=== PATIENT | male | born 1945 | race Caucasian/White ===

== ENCOUNTER 2017-03-10 13:41 | Emergency (ER) | payer MEDICARE, BC ==
--- NOTE | 2017-03-10 14:04 | EDM.PDOC ---
ED HPI GENERAL MEDICAL PROBLEM - General Chief Complaint: Chest Pain Stated Complaint: SOB Time Seen by Provider: 03/10/17 14:01 Source of Information: Reports: Patient History Limitations: Reports: No Limitations - History of Present Illness INITIAL COMMENTS - FREE TEXT/NARRATIVE: 71-year-old male presents to the ED with sudden onset of shortness of breath and central chest pressure discomfort. Broke out in sweats and felt for a period of time that he might faint. By history is a history of atrial fib flutter and is on Coumadin for many years. He was not aware of his heart racing at the time he developed symptoms. He is feeling somewhat better now although he feels a little bit short of breath. Of note he is been combining for well over a month i.e. prolonged sitting. Last PT INR was done about a month ago. He has had no coronary artery disease or need for intervention. Denies cough or sputum production. No fever or chills. Onset: Today Onset Date: 03/10/17 Onset Time: 13:00 Duration: Minutes: Location: Reports: Chest (Sudden onset of chest pressure discomfort and difficulty breathing broke out in a sweat.) Quality: Reports: Pressure Severity: Moderate (Antral chest.) Improves with: Reports: Rest Worsens with: Reports: Movement Context: Reports: Other. Denies: Activity, Exercise, Lifting, Sick Contact, Trauma Associated Symptoms: Reports: Chest Pain, Diaphoresis, Malaise, Shortness of Breath, Weakness. 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 Is on Coumadin for many years because of this.). Denies: CAD, AR - Past Surgical History GI Surgical History: Reports: Hernia Repair/Other Social & Family History - Tobacco Use Smoking Status *Q: Never Smoker - Caffeine Use Caffeine Use: Reports: None - Recreational Drug Use Recreational Drug Use: No - Living Situation & Occupation Occupation: Employed ED ROS GENERAL - Review of Systems Review Of Systems: See Below Constitutional: Reports: Malaise, Weakness, Fatigue, Diaphoresis. Denies: Fever , Chills, Decreased Appetite, Weight Loss (Over the last hour.) HEENT: Reports: No Symptoms Respiratory: Reports: Shortness of Breath. Denies: Wheezing, Pleuritic Chest Pain (See history present illness), Cough, Sputum, Hemoptysis Cardiovascular: Reports: Chest Pain, Edema, Lightheadedness. Denies: Blood Pressure Problem, Claudication, Dyspnea on Exertion (Mild in his feet by the end of the day.), Orthopnea, Palpitations Endocrine: Reports: Fatigue GI/Abdominal: Reports: No Symptoms : Reports: Frequency, Other (Nocturia 3.) Musculoskeletal: Reports: Back Pain, Joint Pain (Occasional low back pain) Skin: Reports: No Symptoms ( knees and hips at times) Neurological: Reports: No Symptoms Psychiatric: Reports: No Symptoms Hematologic/Lymphatic: Reports: No Symptoms Immunologic: Reports: No Symptoms ED EXAM, GENERAL - Physical Exam Exam: See Below Exam Limited By: No Limitations General Appearance: Alert, WD/WN, No Apparent Distress, Other (O2 sats are 97- 100% on room air. Mildly tachycardic at rest. Blood pressure normal 17/96.) Eye Exam: Bilateral Eye: Normal Inspection Ears: Normal TMs Throat/Mouth: Normal Inspection, Normal Lips, Normal Teeth, Normal Oropharynx Head: Atraumatic, Normocephalic Neck: Normal Inspection, Supple, Non-Tender, Full Range of Motion. No: Lymphadenopathy (L), Lymphadenopathy (R) Respiratory/Chest: No Respiratory Distress, Lungs Clear, Normal Breath Sounds, No Accessory Muscle Use Cardiovascular: Normal Peripheral Pulses, Regular Rate, Rhythm, No Edema, No Gallop, No Murmur, No Rub Peripheral Pulses: 1+: Posterior Tibial (L), Posterior Tibial (R), Dorsalis Pedis (L), Dorsalis Pedis (R) GI/Abdominal: Normal Bowel Sounds, Soft, Non-Tender, No Organomegaly, No Abnormal Bruit Back Exam: Normal Inspection, Full Range of Motion. No: CVA Tenderness (L), CVA Tenderness (R) Extremities: Normal Inspection, Normal Range of Motion, Non-Tender, No Pedal Edema, Normal Capillary Refill Neurological: Alert, Oriented, CN II-XII Intact, Normal Cognition, Normal Gait Psychiatric: Normal Affect, Normal Mood EKG INTERPRETATION EKG Date: 03/10/17 Time: 13:50 Rhythm: Other (No P waves are discernible. Regular narrow complex rhythm. Suspect ectopic atrial rhythm.) Rate (Beats/Min): 108 [place]: RAD-Right [place] Deviation P-Wave: Absent QRS: Other (Q waves V1 to V3 consider old anteroseptal myocardial infarction possibly subacute with ST segment elevation in V2 and V3. Near Q waves also in lead 1 and aVL consider old bilateral wall myocardial infarction.) ST-T: Elevated (Possibly mildly elevated in V2 and V3. Cannot rule out acute ischemic event.) QT: Normal (QT interval is prolonged at 410.) Course - Vital Signs Last Recorded V/S: Last Vital Signs Temp 35.9 C 03/10/17 13:48 Pulse 109 H 03/10/17 16:47 Resp 13 03/10/17 16:47 BP 118/93 H 03/10/17 16:47 Pulse Ox 98 03/10/17 16:47 - Orders/Labs/Meds Labs: Laboratory Tests 03/10/17 03/10/17 03/10/17 Range/Units 14:00 14:00 14:00 WBC 6.89 (4.23-9.07) K/mm3 RBC 5.35 (4.63-6.08) M/mm3 Hgb 15.8 (13.7-17.5) gm/L Hct 45.9 (40.1-51.0) % MCV 85.8 (79.0-92.2) fl MCH 29.5 (25.7-32.2) pg MCHC 34.4 (32.2-35.5) g/dl RDW Std Deviation 42.6 (35.1-43.9) fL Plt Count 220 (163-337) K/mm3 MPV 9.5 (9.4-12.3) fl Neutrophils % (Manual) 64 H (40-60) % Band Neutrophils % 0 (0-10) % Lymphocytes % (Manual) 34 (20-40) % Atypical Lymphs % 0 % Monocytes % (Manual) 0 L (2-10) % Eosinophils % (Manual) 1 (0.8-7.0) % Basophils % (Manual) 1 (0.2-1.2) Platelet Estimate Adequate Plt Morphology Comment Normal RBC Morph Comment Normal PT 26.9 H (8.0-13.0) SECONDS INR 2.34 D-Dimer, Quantitative (0.19-0.59) mg/L Sodium 140 (136-145) mEq/L Potassium 4.3 (3.5-5.1) mEq/L Chloride 106 (98-107) mEq/L Carbon Dioxide 24 (21-32) mEq/L Anion Gap 14.3 (5-15) BUN 18 (7-18) mg/dL Creatinine 1.6 H (0.7-1.3) mg/dL Est Cr Clr Drug Dosing 38.21 mL/min Estimated GFR (MDRD) 43 (>60) mL/min BUN/Creatinine Ratio 11.3 L (14-18) Glucose 101 (83-115) mg/dL Calcium 8.9 (8.5-10.1) mg/dL Magnesium (1.8-2.4) mg/dl Total Bilirubin 0.5 (0.2-1.0) mg/dL AST 23 (15-37) U/L ALT 33 (16-63) U/L Alkaline Phosphatase 134 H (46-116) U/L CK-MB (CK-2) 1.2 (0-3.6) ng/ml Troponin I < 0.017 (0.00-0.056) ng/mL C-Reactive Protein < 0.2 (<1.0) mg/dL Aax-L-Jrjuzantrrd Pept 1841 H (0-125) pg/mL Total Protein 7.0 (6.4-8.2) g/dl Albumin 3.7 (3.4-5.0) g/dl Globulin 3.3 gm/dL Albumin/Globulin Ratio 1.1 (1-2) Urine Color (Yellow) Urine Appearance (Clear) Urine pH (5.0-8.0) Ur Specific [place] (1.005-1.030) Urine Protein (Negative) Urine Glucose (UA) (Negative) Urine Ketones (Negative) Urine Occult Blood (Negative) Urine Nitrite (Negative) Urine Bilirubin (Negative) Urine Urobilinogen (0.2-1.0) Ur Leukocyte Esterase (Negative) 03/10/17 03/10/17 03/10/17 Range/Units 14:00 14:00 16:10 WBC (4.23-9.07) K/mm3 RBC (4.63-6.08) M/mm3 Hgb (13.7-17.5) gm/L Hct (40.1-51.0) % MCV (79.0-92.2) fl MCH (25.7-32.2) pg MCHC (32.2-35.5) g/dl RDW Std Deviation (35.1-43.9) fL Plt Count (163-337) K/mm3 MPV (9.4-12.3) fl Neutrophils % (Manual) (40-60) % Band Neutrophils % (0-10) % Lymphocytes % (Manual) (20-40) % Atypical Lymphs % % Monocytes % (Manual) (2-10) % Eosinophils % (Manual) (0.8-7.0) % Basophils % (Manual) (0.2-1.2) Platelet Estimate Plt Morphology Comment RBC Morph Comment PT (8.0-13.0) SECONDS INR D-Dimer, Quantitative < 0.19 L (0.19-0.59) mg/L Sodium (136-145) mEq/L Potassium (3.5-5.1) mEq/L Chloride (98-107) mEq/L Carbon Dioxide (21-32) mEq/L Anion Gap (5-15) BUN (7-18) mg/dL Creatinine (0.7-1.3) mg/dL Est Cr Clr Drug Dosing mL/min Estimated GFR (MDRD) (>60) mL/min BUN/Creatinine Ratio (14-18) Glucose (83-115) mg/dL Calcium (8.5-10.1) mg/dL Magnesium 1.7 L (1.8-2.4) mg/dl Total Bilirubin (0.2-1.0) mg/dL AST (15-37) U/L ALT (16-63) U/L Alkaline Phosphatase (46-116) U/L CK-MB (CK-2) (0-3.6) ng/ml Troponin I (0.00-0.056) ng/mL C-Reactive Protein (<1.0) mg/dL Ewd-[id number]-Jqpisrjpxxb Pept (0-125) pg/mL Total Protein (6.4-8.2) g/dl Albumin (3.4-5.0) g/dl Globulin gm/dL Albumin/Globulin Ratio (1-2) Urine Color Light yellow (Yellow) Urine Appearance Clear (Clear) Urine pH 7.0 (5.0-8.0) Ur Specific [place] 1.015 (1.005-1.030) Urine Protein Negative (Negative) Urine Glucose (UA) Negative (Negative) Urine Ketones Negative (Negative) Urine Occult Blood Negative (Negative) Urine Nitrite Negative (Negative) Urine Bilirubin Negative (Negative) Urine Urobilinogen 0.2 (0.2-1.0) Ur Leukocyte Esterase Negative (Negative) Meds: Medications Discontinued Medications Generic Name Dose Route Start Last Admin Trade Name Freq PRN Reason Stop Dose Admin Furosemide 40 mg 03/10/17 16:25 03/10/17 16:42 Lasix PO 03/10/17 16:26 40 mg ONETIME ONE Administration Sodium Chloride 1,000 mls @ 100 mls/hr 03/10/17 14:30 03/10/17 14:31 Normal Saline IV 100 mls/hr ASDIRECTED ASHOK Administration - Radiology Interpretation Free Text/Narrative:: 71-year-old male presents the ED due to acute onset of shortness of breath with central pressure discomfort and no code and a severe sweat. [place] for a while that he was going to collapse. Of note the patient has a history of chronic atrial fib flutter which appears to be well controlled on ECG current rate is 108. He is on Coumadin for this for many years. Last PT/INR was greater than a month ago. Patient has been on no calm line for the last month i.e. prolonged sitting O2 sats are 97-1% on room air. ECG shows a ectopic regular narrow complex rhythm likely ectopic atrial rhythm. There is Q waves in V1 to V3 compatible with a old anteroseptal myocardial infarction. ST segments are slightly elevated in V2 and V3 and therefore cannot rule out subacute anteroseptal AR. There is also near Q-wave in 1 and a Q-wave in aVL suggestive of lateral wall involvement. He gives no history of known coronary disease. QT interval is mildly prolonged at 410. Plan routine labs to include PT/INR d- dimer. One view chest x-ray to be done. Cardiac markers as well. - Re-Assessments/Exams Free Text/Narrative Re-Assessment/Exam: 03/10/17 14:44 chest x-ray done portably reveals clear lung lord. Both pulmonary arteries appear to be quite prominent. BX silhouette is essentially normal. There is very mild diffuse vascular congestion pattern. 03/10/17 15:54 white count was 6.89 with 64% neutrophils no bands hemoglobin is 15.8 hematocrit of 45.9 platelets 220,000. Coags show a PT of 26.9 INR is 2.34 which is considered therapeutic. D-dimer is less than 0.19. BNP is elevated at 1841. Troponin is normal at less than 0.017 CK-MB fraction 1.2. CRP was less than 0.2. Suffered for some reason he has developed an accumulation of fluid a mild congestive heart failure symptoms his history suggests almost flash pulmonary edema but this is certainly not evident on x-ray. Patient is feeling improved with no further dyspnea. O2 sats remained around 94% on room air. 03/10/17 16:24 discussed the findings with the patient and he was advised that he needs to take Lasix 40 mg once daily until follow-up with cardiology. He will be to return to [facility]. He needs an echocardiogram to see if there is any structural abnormalities of his heart that would precipitate congestive failure. I will place him on Lasix 40 mg once daily with the first tablet provided in the ED now. I will give him 2 prescriptions one for 7 tablets until he can [facility] 30 more tablets. He will follow-up with his personal physian in 7 days time. Departure - Departure Time of Disposition: 16:26 Disposition: Home, Self-Care 01 Condition: Fair Clinical Impression: Acute pulmonary edema - Discharge Information Prescriptions: Furosemide [Lasix] 40 mg PO DAILY #30 tablet Instructions: Pulmonary Edema, [id number] Referrals: PCP,Not In Area [Primary Care Provider] - Forms: ED Department Discharge Additional Instructions: Evaluation in the emergency him today due to sudden onset of central chest pressure discomfort shortness of breath and major break out in a sweat. Workup included a heart workup and rule out of any blood clot in the lung. You are on Coumadin because of atrial fibrillation and her INR today is therapeutic at 2.34. Chest x-ray revealed mild fluid accumulation within the lungs. This correlated with an elevated BNP at 1841. This is a measuring stick for how well the left side of the heart is pumping. You therefore require further workup by cardiology. You need an echocardiogram and you may need an angiogram as well. In the meantime suggest Lasix 40 mg once daily in the morning to keep the fluid off of your heart and prevent further fluid retention and shortness of breath from developing. First tablet was provided in the ED today next tablet would be due tomorrow morning. I wrote a prescription for 7 tablets that you can purchase today from the pharmacy and then a prescription for 30 tablets that [facility] can [facility].
[2017-03-10] MEDS ORDERED: Sodium Chloride 0.9% 1,000 ML IV SCH (14:30)
[2017-03-10] MEDS ORDERED: Furosemide 40 MG Tab PO ONE (16:25)
[2017-03-10 17:04] VITALS: BP 118/93
--- NOTE | 2017-03-11 10:46 | CR ---
Chest: Frontal view of the chest was obtained. Comparison: No previous study. Old healed fracture deformity is noted within the mid left clavicle. Heart size is normal. Mild tortuosity of the thoracic aorta is seen. Lungs are clear. Impression: 1. Incidental finding. Nothing acute is appreciated on frontal chest x-ray. Diagnostic code #2
== END 2017-03-10 16:47 | disposition home or self-care (01) ==
LOC: JD.ED 13:41
DX: J81.0 Acute pulmonary edema (principal); I48.91 Unspecified atrial fibrillation; Z98.890 Other specified postprocedural states; Z79.899 Other long term (current) drug therapy; Z88.6 Allergy status to analgesic agent
CPT/HCPCS: 36415; 71010; 80053; 81003; 82553; 83735; 83880; 84484; 85025; 85379; 85610; 86140; 93005; 96360; 96361; 99285; A9270; J7040

== ENCOUNTER 2020-07-15 20:32 | Emergency (ER) | payer OTHER, MEDICARE, BC ==
[2020-07-15] MEDS ORDERED: Sodium Chloride 0.9% 10 ML Syringe FLUSH PRN (20:40)
[2020-07-15] MEDS ORDERED: methylPREDNISolone Sodium Succinate 125 MG/2 ML SDV IVPUSH PRN (20:51)
[2020-07-15] MEDS ORDERED: Famotidine 20 MG/2 ML SDV IVPUSH PRN (20:51)
[2020-07-15] MEDS ORDERED: diphenhydrAMINE 50 MG/ML SDV IVPUSH PRN (20:51)
[2020-07-15] MEDS ORDERED: EPINEPHrine 1:10,000 1 MG/10 ML Syringe IM PRN (20:51)
--- NOTE | 2020-07-15 20:56 | EDM.PDOC ---
ED HPI GENERAL MEDICAL PROBLEM - General Chief Complaint: Respiratory Problem Stated Complaint: COVID + Time Seen by Provider: 07/15/20 20:40 Source of Information: Reports: Patient, Provider (Oral report from provider at [facility]), RN Notes Reviewed History Limitations: Reports: No Limitations - History of Present Illness INITIAL COMMENTS - FREE TEXT/NARRATIVE: Patient is a 74-year-old male who presents to the ED for the evaluation of his ongoing COVID-19. Patient notes that he developed a fever today, and started feeling somewhat ill with fatigue, and headache. He went to the walk-in clinic today, was tested for Covid and was positive. He does note that his son was positive for Covid over the weekend. The patient has underlying heart issues and takes metoprolol, flecainide, and losartan. His O2 sats are 99% on room air, pulse is 54 bpm, temperature is 98.1 F, respiratory rate of 13 and blood pressure is 164/78. Patient does meet inclusion criteria for outpatient monoclonal antibody therapy. He did have a chest x-ray done at the walk-in clinic but we do not have a verbal read of the report. Patient does do most of his health care through the [place] system. - Related Data Allergies Allergy/AdvReac Type Severity Reaction Status Date / Time ketorolac [From Toradol] Allergy Nausea Verified 07/15/20 20:41 meperidine [From Demerol] Allergy Nausea Verified 07/15/20 20:41 Home Meds: Home Meds Flecainide [Tambocor] 100 mg PO BID 07/15/20 [History] Losartan [Cozaar] 50 mg PO DAILY 07/15/20 [History] Metoprolol Succinate 12.5 mg PO BID 07/15/20 [History] Warfarin [Coumadin] 5 mg PO DAILY 07/15/20 [History] Past Medical History Cardiovascular History: Reports: Afib (History of chronic atrial fib/flutter. Is on Coumadin for many years because of this.). Denies: CAD, [place] - Past Surgical History GI Surgical History: Reports: Hernia Repair/Other Social & Family History - Caffeine Use Caffeine Use: Reports: None - Living Situation & Occupation Occupation: Employed ED ROS GENERAL - Review of Systems Review Of Systems: Comprehensive ROS is negative, except as noted in HPI. ED EXAM, GENERAL - Physical Exam Exam: See Below Exam Limited By: No Limitations General Appearance: Alert, WD/WN, No Apparent Distress Respiratory/Chest: No Respiratory Distress, Lungs Clear, Normal Breath Sounds, No Accessory Muscle Use, Chest Non-Tender Cardiovascular: Normal Peripheral Pulses, Regular Rate, Rhythm, No Edema, No Murmur Peripheral Pulses: 2+: Radial (L), Radial (R) Extremities: Normal Inspection, Normal Capillary Refill Neurological: Alert, Oriented, Normal Cognition, No Motor/Sensory Deficits Psychiatric: Normal Affect, Normal Mood Skin Exam: Warm, Dry, Intact, Normal Color, No Rash #1 Interpretation EKG Date: 07/15/20 Time: 20:49 Rhythm: NSR Rate (Beats/Min): 43 [place]: LAD-Left [place] Deviation P-Wave: Present QRS: Normal ST-T: Normal QT: Normal AR/PQ Interval: First-degree AV block 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 Supraventricular bigeminy was noted. Reviewed with Dr. Yanez. Course - Vital Signs Last Recorded V/S: Last Vital Signs Temp 97.4 F 07/15/20 23:19 Pulse 60 07/15/20 23:19 Resp 16 07/15/20 23:19 BP 154/77 H 07/15/20 23:19 Pulse Ox 100 07/15/20 23:19 - Orders/Labs/Meds Labs: Laboratory Tests 07/15/20 07/15/20 07/15/20 Range/Units 20:30 20:30 20:30 WBC (4.23-9.07) K/mm3 RBC (4.63-6.08) M/mm3 Hgb (13.7-17.5) gm/dl Hct (40.1-51.0) % MCV (79.0-92.2) fl MCH (25.7-32.2) pg MCHC (32.2-35.5) g/dl RDW Std Deviation (35.1-43.9) fL Plt Count (163-337) K/mm3 MPV (9.4-12.3) fl Neutrophils % (Manual) (40-60) % Band Neutrophils % (0-10) % Lymphocytes % (Manual) (20-40) % Atypical Lymphs % % Monocytes % (Manual) (2-10) % Eosinophils % (Manual) (0.8-7.0) % Basophils % (Manual) (0.2-1.2) Platelet Estimate RBC Morph Comment PT (9.7-12.0) SECONDS INR APTT (21.7-31.4) SECONDS D-Dimer, Quantitative (0.19-0.50) mg/L Sodium 139 (136-145) mEq/L Potassium 4.2 (3.5-5.1) mEq/L Chloride 105 (98-107) mEq/L Carbon Dioxide 23 (21-32) mEq/L Anion Gap 15.2 H (5-15) BUN 30 H (7-18) mg/dL Creatinine 1.4 H (0.7-1.3) mg/dL Est Cr Clr Drug Dosing 41.77 mL/min Estimated GFR (MDRD) 50 (>60) mL/min BUN/Creatinine Ratio 21.4 H (14-18) Glucose 118 H (83-115) mg/dL Calcium 8.5 (8.5-10.1) mg/dL Magnesium 1.8 (1.8-2.4) mg/dl Ferritin (26-388) ng/ml Total Bilirubin 0.5 (0.2-1.0) mg/dL AST 26 (15-37) U/L ALT 29 (16-63) U/L Alkaline Phosphatase 119 H (46-116) U/L Lactate Dehydrogenase 211 (85-227) U/L Troponin I < 0.017 (0.00-0.056) ng/mL C-Reactive Protein 3.1 H* (<1.0) mg/dL NT-Pro-B Natriuret Pep 188 H (0-125) pg/mL Total Protein 7.5 (6.4-8.2) g/dl Albumin 3.4 (3.4-5.0) g/dl Globulin 4.1 gm/dL Albumin/Globulin Ratio 0.8 L (1-2) 07/15/20 07/15/20 07/15/20 Range/Units 20:30 20:50 20:50 WBC 5.80 (4.23-9.07) K/mm3 RBC 4.78 (4.63-6.08) M/mm3 Hgb 14.1 D (13.7-17.5) gm/dl Hct 42.6 (40.1-51.0) % MCV 89.1 D (79.0-92.2) fl MCH 29.5 (25.7-32.2) pg MCHC 33.1 (32.2-35.5) g/dl RDW Std Deviation 43.8 (35.1-43.9) fL Plt Count 154 L (163-337) K/mm3 MPV 9.6 (9.4-12.3) fl Neutrophils % (Manual) 65 H (40-60) % Band Neutrophils % 0 (0-10) % Lymphocytes % (Manual) 31 (20-40) % Atypical Lymphs % 0 % Monocytes % (Manual) 4 (2-10) % Eosinophils % (Manual) 0 L (0.8-7.0) % Basophils % (Manual) 0 L (0.2-1.2) Platelet Estimate Adequate RBC Morph Comment Normal PT 22.1 H (9.7-12.0) SECONDS INR 2.10 APTT 35.9 H (21.7-31.4) SECONDS D-Dimer, Quantitative < 0.19 L (0.19-0.50) mg/L Sodium (136-145) mEq/L Potassium (3.5-5.1) mEq/L Chloride (98-107) mEq/L Carbon Dioxide (21-32) mEq/L Anion Gap (5-15) BUN (7-18) mg/dL Creatinine (0.7-1.3) mg/dL Est Cr Clr Drug Dosing mL/min Estimated GFR (MDRD) (>60) mL/min BUN/Creatinine Ratio (14-18) Glucose (83-115) mg/dL Calcium (8.5-10.1) mg/dL Magnesium (1.8-2.4) mg/dl Ferritin 155 (26-388) ng/ml Total Bilirubin (0.2-1.0) mg/dL AST (15-37) U/L ALT (16-63) U/L Alkaline Phosphatase (46-116) U/L Lactate Dehydrogenase (85-227) U/L Troponin I (0.00-0.056) ng/mL C-Reactive Protein (<1.0) mg/dL NT-Pro-B Natriuret Pep (0-125) pg/mL Total Protein (6.4-8.2) g/dl Albumin (3.4-5.0) g/dl Globulin gm/dL Albumin/Globulin Ratio (1-2) Meds: Medications Discontinued Medications Generic Name Dose Route Start Last Admin Trade Name Freq PRN Reason Stop Dose Admin Diphenhydramine HCl 50 mg 07/15/20 20:51 Benadryl IVPUSH ONETIME PRN hypersensitivity reaction Epinephrine HCl 0.3 mg 07/15/20 20:51 Epinephrine 1:10,000 IM ONETIME PRN hypersensitivity reaction Famotidine 20 mg 07/15/20 20:51 Pepcid IVPUSH ONETIME PRN hypersensitivity reaction Bamlanivimab 700 mg/ Sodium 250 mls @ 250 mls/hr 07/15/20 20:51 07/15/20 21:23 Chloride IV 07/15/20 20:52 250 mls/hr ONETIME ONE Administration Protocol Methylprednisolone Sodium Succinate 125 mg 07/15/20 20:51 Solu-Medrol IVPUSH ONETIME PRN hypersensitivity reaction Sodium Chloride 10 ml 07/15/20 20:40 Saline Flush FLUSH ASDIRECTED PRN Keep Vein Open Sodium Chloride 30 ml 07/15/20 21:00 Saline Flush FLUSH ASDIRECTED ASHOK - Re-Assessments/Exams Free Text/Narrative Re-Assessment/Exam: 07/15/20 20:56 Patient presents to the ED for the evaluation of his ongoing COVID-19 symptoms. We will get baseline labs, patient did have a chest x-ray done at the walk-in clinic so I will not repeat one for today's purposes. His O2 sats are good on room air, with him testing positive today and starting symptomatic it is likely that he does not have major pneumonialike changes. Patient does meet inclusion criteria for bamlanivimab treatment. I spoke with the patient to provide information about bamlanivimab treatment. I offered them the "Patient and caregiver EUA bamlanivimab fact sheet" to read and review. I stated that the drug has been approved by an emergency use authorization (EUA) process and has not been fully FDA reviewed or approved. The patient meets the EUA req uirements. I discussed there are other potential treatment options that are currently not FDA approved to treat COVID-19. I did offer an opportunity to ask questions and all questions were answered. Patient voiced understanding and agreed to proceed with the treatment. 07/15/20 21:55 Labs have been drawn, and there are no major acute findings that need attention at today's visit. Patient is getting his bamlanivimab, he will be kept in the ER for 1 hour after infusion of this medication to be watched for side effects, and discharged home with general conservative recommendations. Departure - Departure Time of Disposition: 21:55 Disposition: Home, Self-Care 01 Condition: Good Clinical Impression: COVID-19 - Discharge Information *PRESCRIPTION DRUG MONITORING PROGRAM REVIEWED*: No *COPY OF PRESCRIPTION DRUG MONITORING REPORT IN PATIENT WILLEM: No Instructions: COVID-19 Frequently Asked Questions, Prevent the Spread of COVID- 19 if You Are Sick - [facility] [place] Referrals: Ludmila Faith MD [Primary Care Provider] - Forms: ED Department Discharge Additional Instructions: You were seen in the ER today for ongoing and/or worsening respiratory symptoms. Your chest x-ray showed no signs of pneumonia at this time. Your oxygen levels were great at 98% on room air. You were given an outpatient monoclonal antibody therapy for your ongoing COVID- 19 illness. This should help make you feel better sooner, and hopefully shorten the length of your symptoms. Please try to increase your oral fluid intake, and eat multiple small meals throughout the day, to keep yourself healthy. You need to keep yourself nourished in order to fight off this disease. You can try a liquid diet like gat orade/powerade as well to get your electrolytes. You may take 500 mg Tylenol every hours 6 hours for pain/fever relief. Do not exceed 4000 mg Tylenol in a 24-hour time span. However, running a fever is your body's natural response to illness, and it allows the body to develop antibodies to disease, we are recommending trying to limit the use of Tylenol as much as possible to allow your body's natural immune response. Recommend you obtain a pulse oximeter and monitor your oxygen levels at home, you should place the monitor on your finger, and sit in a calm, quiet position for a few minutes and then record the number that is on the screen. If this consistently below 90% on room air without movement, this would be cause for concern to come back to the hospital for further management of your COVID-19 disease. Sepsis Event Note (ED) - Evaluation Sepsis Screening Result: No Definite Risk
[2020-07-15] MEDS ORDERED: Sodium Chloride 0.9% 10 ML Syringe FLUSH SCH (21:00)
[2020-07-15 23:20] VITALS: BP 154/77; PULSE 60
== END 2020-07-15 23:18 | disposition home or self-care (01) ==
LOC: JD.ED 20:32
DX: U07.1 COVID-19 (principal); I48.91 Unspecified atrial fibrillation; Z88.6 Allergy status to analgesic agent; Z88.5 Allergy status to narcotic agent; Z79.01 Long term (current) use of anticoagulants; Z79.899 Other long term (current) drug therapy
CPT/HCPCS: 36415; 80053; 82728; 83615; 83735; 83880; 84484; 85007; 85027; 85379; 85610; 85730; 86140; 93005; 99284; J7050; M0239; 93010; 99283; Q0239

== ENCOUNTER → 2024-09-07 | Day surgery (SDC) | payer MEDICARE, BC ==
[2024-09-07] MEDS: Phenylephrine 2.5% Ophth Soln 2 ML Bot EYERT SCH (07:13)
[2024-09-07] MEDS: Lidocaine 1% PF 2 ML SDV INJECT SCH (07:14)
[2024-09-07] MEDS: Tetracaine HCl/PF 0.5% 4 ML Bottle EYEBOTH SCH (07:14)
[2024-09-07] MEDS: Pilocarpine 4% Ophth Soln 15 ML Bot EYERT SCH (07:14)
[2024-09-07] MEDS: Cefuroxime 10 MG/ML SYRINGE EYERT SCH (07:14)
[2024-09-07] MEDS: Polymyxin B/Trimethoprim 10 ML Bottle EYERT SCH (07:14)
[2024-09-07] MEDS: Brimonidine 0.2% Ophth Soln 5 ML Bottle EYERT SCH (07:14)
[2024-09-07 07:55] VITALS: BP 176/80; PULSE 68
[2024-09-07] MEDS: Tropicamide 1% Ophth Soln 3 ML Bottle EYERT SCH (08:55)
[2024-09-07] MEDS: LORazepam 1 MG Tab PO ONE (09:25)
== END ==
LOC: JD.SDS 07:39
PROVIDERS: ATTEND Ophthalmology
DX: H25.813 Combined forms of age-related cataract, bilateral (principal); I10 Essential (primary) hypertension; H18.413 Arcus senilis, bilateral; H43.813 Vitreous degeneration, bilateral; H35.3131 Nonexudative age-related macular degeneration, bilateral, early dry stage; H16.103 Unspecified superficial keratitis, bilateral; H16.223 Keratoconjunctivitis sicca, not specified as Sjogren's, bilateral; H02.831 Dermatochalasis of right upper eyelid; H02.834 Dermatochalasis of left upper eyelid; Z79.899 Other long term (current) drug therapy; I48.91 Unspecified atrial fibrillation; Z79.01 Long term (current) use of anticoagulants
CPT/HCPCS: A9270-GY; J0697; J3490

== ENCOUNTER 2024-10-05 07:24 | Day surgery (SDC) | payer MEDICARE, BC ==
[2024-10-05] MEDS: Polymyxin B/Trimethoprim 10 ML Bottle EYELF SCH (07:33)
[2024-10-05] MEDS: Brimonidine 0.2% Ophth Soln 5 ML Bottle EYELF SCH (07:35)
[2024-10-05] MEDS: Phenylephrine 2.5% Ophth Soln 2 ML Bot EYELF SCH (07:35)
[2024-10-05] MEDS: Lidocaine 1% PF 2 ML SDV INJECT SCH (07:35)
[2024-10-05] MEDS: Tetracaine HCl/PF 0.5% 4 ML Bottle EYEBOTH SCH (07:35)
[2024-10-05] MEDS: Cefuroxime 10 MG/ML SYRINGE EYELF SCH (07:36)
[2024-10-05] MEDS: Pilocarpine 4% Ophth Soln 15 ML Bot EYELF SCH (07:36)
[2024-10-05] MEDS: Tropicamide 1% Ophth Soln 3 ML Bottle EYELF SCH (07:47)
[2024-10-05] MEDS: LORazepam 1 MG Tab PO ONE (08:03)
[2024-10-05 09:37] VITALS: BP 157/82; PULSE 44
== END 2024-10-05 09:33 | disposition home or self-care (01) ==
LOC: JD.SDS 07:24
PROVIDERS: ATTEND Ophthalmology
DX: H25.812 Combined forms of age-related cataract, left eye (principal); H21.81 Floppy iris syndrome; H21.42 Pupillary membranes, left eye; I10 Essential (primary) hypertension; H52.31 Anisometropia; I48.91 Unspecified atrial fibrillation; Z79.01 Long term (current) use of anticoagulants; Z79.899 Other long term (current) drug therapy; Z88.8 Allergy status to other drugs, medicaments and biological substances
CPT/HCPCS: 66982; A9270; J0697; J3490